=== PATIENT | male | born 1995 | race African-American/Black ===

== ENCOUNTER 2024-12-28 10:20 | Emergency (ER) | payer MEDICAID ==
[~2024-12-28] VITALS: Ht 195.6 cm; Wt 103.0 kg
[2024-12-28 10:29] VITALS: O2SAT 100
[2024-12-28] MEDS ORDERED: NAPR-681 MT (12:01)
[2024-12-28] MEDS ORDERED: AMOX500T2 MT (12:01)
[2024-12-28 12:36] VITALS: BP 129/71; PULSE 53; RESP 16; TEMP 36.7; O2SAT 100
[2024-12-28] MEDS: PENICILLIN G BENZATHINE 1,200,000 UNITS/2ML SYR IM ONE (12:36)
== END 2024-12-28 12:39 | disposition home or self-care (01) ==
LOC: ER 10:57
DX: J02.9 Acute pharyngitis, unspecified (principal); J45.909 Unspecified asthma, uncomplicated; Z98.890 Other specified postprocedural states
CPT/HCPCS: 99283; 87430; 87070; 96372; J0561